=== PATIENT | female | born 1960 | race Caucasian/White ===

== ENCOUNTER 2016-09-08 18:10 | Emergency (ER) | payer OTHER ==
--- NOTE | ~2016-09-08 | CR63 ---
[facility] A Service of [facility] & [facility] RADIOLOGY TEXT RESULTS PATIENT: HIMANSHU SALAZAR LOCATION: [facility] : 60 UNIT #: [id number] AGE: [address]: Bebeto Hernandez MD SEX: F ORDER DR: [id number] [facility] [address] [place], [place] [address] [id number] E MR#: [id number] Acc #: [id number] NAME: HIMANSHU SALAZAR. : 1960 SEX: F STUDY DATE/TIME: 09/08/2016 19:11 UNIT: [facility] ROOM: STUDY DESCRIPTION: CR Chest 2 View Attending Physician: Bebeto Hernandez M.D. Ordering Physician: Bebeto Hernandez M.D. Primary Care Physician: Paula Mcknight A.P.R.N. MEDICAL IMAGING REPORT This report is preliminary unless electronic signature is present EXAM PA and lateral chest, 09/08/2016 HISTORY Cough and shortness of air and left side back pain for 3 days. FINDINGS 2 views of the chest demonstrate small patchy subsegmental infiltrate or atelectasis in the medial retrocardiac left lower lobe. The remainder of the lungs are clear. No pleural effusions. Cardiac size and pulmonary vascularity are within normal limits. IMPRESSION Small patchy subsegmental infiltrate or atelectasis in the retrocardiac left lower lobe. The remainder of the lungs are clear. Dictated by... Simeon Hernadez M.D. THIS IS AN ELECTRONICALLY VERIFIED REPORT Simeon Hernadez M.D. at 09/09/2016 2:41 PM DFL/jenny TD: 09/09/2016 00:57 JOB #: [id number] MEDICAL IMAGING REPORT Page 1 of 1 COPY
--- NOTE | ~2016-09-08 | EKG ---
PATIENT: HIMANSHU SALAZAR UNIT #: [id number] Ventricular Rate: 99 BPM Atrial Rate: 99 BPM P-R Interval: 118 ms QRS Duration: 82 ms Q-T Interval: 372 ms QTC Calculation(Bezet): 477 ms P [place]: 38 degrees Calculated R [place]: 48 degrees Calculated T [place]: 43 degrees Diagnosis Line: Normal sinus rhythm Diagnosis Line: Normal ECG Diagnosis Line: When compared with ECG of 07-NOV-2015 06:42, Diagnosis Line: No significant change was found Diagnosis Line: Confirmed by JESSICA ALLEN MD ([id number]) on 09/09/2016 Diagnosis Line: 9:18:30 PM INTERPRETING MD: ALEJANDRO RODRIGUEZ
[2016-09-08 17:38] LABS: BASOPHIL# 0.1 X10e3 (0-0.3); BASOPHIL% 0.6 % (0-2.5); EOSINOPHIL# 0.1 X10e3 (0-0.7); EOSINOPHIL% 0.4 % (0.0-7.0); HEMATOCRIT 47.2 % (35.0-45.0); HEMOGLOBIN 15.7 gm/dL (12.0-16.0); LYMPHOCYTE# 4.5 X10e3 (1.0-3.5); MEAN CELL VOLUME 93.7 FL (83-96); MEAN CORPUSCULAR HEMOGLOBIN 31.2 PG (28-34); MEAN CORPUSCULAR HGB CONC 33.3 g/dL (30-36); MEAN PLATELET VOLUME 8.1 FL (6.5-11.5); MONOCYTE# 1.2 X10e3 (0-1.0); NEUTROPHIL# 10.9 X10e3 (1.5-7.1); PLATELET COUNT 262 X10e3 (140-420); RED BLOOD COUNT 5.04 X10e (3.90-5.30); WHITE BLOOD COUNT 16.7 X10e3 (4.0-10.5)
[2016-09-08 17:47] LABS: DIFF IND YES
[2016-09-08 17:54] LABS: ALBUMIN SERUM 3.9 g/dL (3.5-5.0); BILIRUBIN, DIRECT 0.5 mg/dL (0.0-0.2); BILIRUBIN,INDIRECT 0.7 mg/dL (0.0-0.9); BILIRUBIN,TOTAL 1.2 mg/dL (0.2-2.0); CALCIUM SERUM 9.3 mg/dL (8.4-10.2); CREATININE SERUM 0.5 mg/dL (0.6-1.4); GLOM FILT RATE Estimated 108.2 mL/min (>60); POTASSIUM 3.6 mmol/L (3.5-5.1); PROTEIN TOTAL SERUM 8.5 g/dL (6.0-8.3)
[2016-09-08 18:09] LABS: ANISOCYTOSIS SL; PLATELET ESTIMATE NORMAL (NORMAL)
[~2016-09-08 18:10] MED LIST: ALPRAZOLAM PO; BACTRIM DS TABL1 TA1 PO; BACTROBAN22 GM TOP; CALCIUM 500 +1 EAC2 PO; CELEXA PO; CITALOPRAM HBR40 M1; CITALOPRAM HBR40 MG PO; CLEOCIN PO; DAKIN'S MODIF1000 ML EXT; DOXYCYCLINE HY100 M1 PO; FLEXERIL10 MG PO; GINKGO BILOBA60 M1 PO; HYDROCODON-ACE1 EAC5 PO; HYDROCODONE-APA1 T30 PO; KLONOPIN PO; LORTAB 5/500 TA1 TA1 PO; LORTAB 7.5-3251 EACH PO; MEDROL4 MG/DOSE- PO; MORGIDOX100 MG PO; NEXIUM PO; ORUDIS75 M1 PO; PERCOCET7.5 PO; PHENERGAN DM1 ML PO; PHENERGAN25 M1 PO; PREDNISONE PO; PROAIR HFA8.5 GM INH; REQUIP0.25 MG PO; REQUIP5 MG PO; ROBITUSSIN15 MG/5 ML PO; TYLOX 5/500 CAP1 CAP PO; VITAMIN C100 MG; VITAMIN C1000 M2 PO; VITAMIN D32000 UNI1 PO; VOLTAREN75 MG PO; XANAX0.5 M1 PO; XANAX1 MG PO; ZOFRAN PO
[2016-09-08 18:19] LABS: POC - CKMB <1.0 ng/mL (0.0-7.9); POC - TROPONIN <0.05 ng/mL (<=0.05)
[2016-09-08 20:03] LABS: POC - CKMB <1.0 ng/mL (0.0-7.9); POC - TROPONIN <0.05 ng/mL (<=0.05)
== END 2016-09-08 20:28 | disposition home or self-care (01) ==
LOC: CED 18:10
PROVIDERS: Emergency Medicine
DX: J18.1 Lobar pneumonia, unspecified organism (principal); I25.10 Atherosclerotic heart disease of native coronary artery without angina pectoris; Z90.49 Acquired absence of other specified parts of digestive tract; Z90.710 Acquired absence of both cervix and uterus; J44.9 Chronic obstructive pulmonary disease, unspecified; F17.200 Nicotine dependence, unspecified, uncomplicated
CPT/HCPCS: 36415; 71020; 80048; 80076; 82553; 84484; 85025; 93005; 99284

== ENCOUNTER 2016-09-10 17:34 | Emergency (ER) | payer OTHER ==
--- NOTE | ~2016-09-10 | EKG ---
PATIENT: HIMANSHU SALAZAR UNIT #: [id number] Ventricular Rate: 95 BPM Atrial Rate: 95 BPM P-R Interval: 112 ms QRS Duration: 84 ms Q-T Interval: 374 ms QTC Calculation(Bezet): 469 ms P [place]: 46 degrees Calculated R [place]: 51 degrees Calculated T [place]: 42 degrees Diagnosis Line: Normal sinus rhythm Diagnosis Line: Normal ECG Diagnosis Line: When compared with ECG of 08-SEP-2016 17:13, Diagnosis Line: No significant change was found Diagnosis Line: Confirmed by JESSICA ALLEN MD ([id number]) on 09/11/2016 Diagnosis Line: 4:36:52 PM INTERPRETING MD: ALEJANDRO RODRIGUEZ
--- NOTE | ~2016-09-10 | CT16 ---
[facility] A Service of [facility] RADIOLOGY TEXT RESULTS PATIENT: HIMANSHU SALAZAR LOCATION: [facility] : 60 UNIT #: [id number] AGE: [address]: Lencho Quiroga MD SEX: F ORDER DR: [id number] [facility] [address] [place], [place] [address] [id number] E MR#: [id number] Acc #: [id number] NAME: HIMANSHU SALAZAR. : 1960 SEX: F STUDY DATE/TIME: 09/10/2016 18:36 UNIT: [facility] ROOM: STUDY DESCRIPTION: CT Angio Chest for PE Attending Physician: Lencho Quiroga M.D. Ordering Physician: Lencho Quiroga M.D. Primary Care Physician: Paula Mcknight A.P.R.N. MEDICAL IMAGING REPORT This report is preliminary unless electronic signature is present EXAM Chest CT with contrast with CT angiography HISTORY Hematemesis, cough, shortness breath for the past [address] exam was performed with one or more of the following radiation dose reduction techniques: automatic exposure control, adjustment of mA and/or kV according to patient size, and iterative reconstruction. Axial imaging was obtained through the chest with contrast. 100 mL of Isovue was used. CT angiography was performed with thick sliding MIPs in the sagittal coronal projections. FINDINGS Chest images at mediastinal window show no pulmonary filling defects to suggest emboli. There are no enlarged mediastinal or hilar lymph nodes. There is no evidence of pleural or pericardial fluid. Lung window imaging shows dense alveolar consolidation at the left lung base in the retrocardiac area consistent with pneumonia. The left lower lobe bronchus is obstructed to this area. There are no air bronchograms. The right lung is clear. IMPRESSION Mucous plugging of a left lower lobe bronchus with dense consolidation posteromedially at the left lung base consistent with pneumonia. No evidence of reactive pleural effusion. No evidence of pulmonary embolism. The remaining lung lopez are clear. [facility] A Service of [facility] RADIOLOGY TEXT RESULTS PATIENT: HIMANSHU SALAZAR LOCATION: [facility] : 60 UNIT #: [id number] AGE: [address]: Lencho Quiroga MD SEX: F ORDER DR: Dictated by... Malachi Mccoy M.D. THIS IS AN ELECTRONICALLY VERIFIED REPORT Malachi Mccoy M.D. at 09/11/2016 4:55 PM SANDYF/alma rosa TD: 09/10/2016 21:39 JOB #: [id number] MEDICAL IMAGING REPORT Page 1 of 1 COPY
[2016-09-10 17:50] LABS: BASOPHIL# 0.1 X10e3 (0-0.3); BASOPHIL% 0.5 % (0-2.5); DIFF IND YES; EOSINOPHIL% 0.3 % (0.0-7.0); HEMATOCRIT 46.1 % (35.0-45.0); HEMOGLOBIN 15.5 gm/dL (12.0-16.0); LYMPHOCYTE# 3.1 X10e3 (1.0-3.5); LYMPHOCYTE% 17.6 % (17.0-45.0); MEAN CELL VOLUME 94.2 FL (83-96); MEAN CORPUSCULAR HEMOGLOBIN 31.8 PG (28-34); MEAN CORPUSCULAR HGB CONC 33.7 g/dL (30-36); MEAN PLATELET VOLUME 8.3 FL (6.5-11.5); MONOCYTE# 0.9 X10e3 (0-1.0); MONOCYTE% 5.4 % (3.0-12.0); NEUTROPHIL# 13.4 X10e3 (1.5-7.1); NEUTROPHIL% 76.2 % (40-75); PLATELET COUNT 314 X10e3 (140-420); WHITE BLOOD COUNT 17.5 X10e3 (4.0-10.5)
[2016-09-10 18:04] LABS: ALBUMIN SERUM 4.2 g/dL (3.5-5.0); BILIRUBIN, DIRECT 0.3 mg/dL (0.0-0.2); BILIRUBIN,INDIRECT 0.5 mg/dL (0.0-0.9); BILIRUBIN,TOTAL 0.8 mg/dL (0.2-2.0); BUN/CREATININE RATIO 28.33; CALCIUM SERUM 9.4 mg/dL (8.4-10.2); CREATININE SERUM 0.6 mg/dL (0.6-1.4); GLOM FILT RATE Estimated 101.9 mL/min (>60); PROTEIN TOTAL SERUM 8.8 g/dL (6.0-8.3)
[2016-09-10 18:11] LABS: PLATELET ESTIMATE NORMAL (NORMAL); RBC NORMAL YES; TOXIC GRANULATION SL
== END 2016-09-10 21:40 | disposition home or self-care (01) ==
LOC: CED 17:34
PROVIDERS: Emergency Medicine
DX: J18.9 Pneumonia, unspecified organism (principal); R04.2 Hemoptysis; I25.10 Atherosclerotic heart disease of native coronary artery without angina pectoris; J44.9 Chronic obstructive pulmonary disease, unspecified; F17.210 Nicotine dependence, cigarettes, uncomplicated; Z90.710 Acquired absence of both cervix and uterus; Z90.49 Acquired absence of other specified parts of digestive tract
CPT/HCPCS: 36415; 71275; 80048; 80076; 85025; 87040; 93005; 94640; 96361; 96365; 96375; 99284; J1885; J1956; Q9967